=== PATIENT | male | born 1985 | race Caucasian/White ===

== ENCOUNTER 2019-10-17 21:09 | Emergency (ER) | payer OTHER ==
[~2019-10-17] VITALS: Ht 180.3 cm; Wt 104.3 kg
[~2019-10-17 21:09] MED LIST: IBUPROFEN 400400 M2 PO; PENICILLIN V P500 MG PO
[2019-10-17] MEDS ORDERED: IBUPROFEN 600600 M1 PO (22:21)
[2019-10-17] MEDS ORDERED: BACTRIM DS TAB1 EACH PO (22:21)
[2019-10-17 22:27] VITALS: BP 122/63
== END 2019-10-17 22:37 | disposition home or self-care (01) ==
LOC: ER 21:09
DX: L02.414 Cutaneous abscess of left upper limb (principal); F17.210 Nicotine dependence, cigarettes, uncomplicated